=== PATIENT | male | born 1990 | race African-American/Black ===

== ENCOUNTER 2017-04-10 02:31 | Emergency (ER) | payer OTHER ==
[~2017-04-10] VITALS: Ht 172.7 cm; Wt 88.8 kg
[2017-04-10 02:31] VITALS: TEMP 36.7; Ht 172.7 cm; Wt 88.8 kg
[2017-04-10] MEDS ORDERED: HALOPERIDOL LACTATE 5 MG/ML 1 ML VIAL ONE (02:35)
[2017-04-10] MEDS ORDERED: LORAZEPAM 2 MG/ML 1 ML VIAL ONE (02:35)
--- NOTE | 2017-04-10 02:43 | EMERGENCY ROOM VISIT NOTE ---
History Report prepared by Soy: Marina Fiore Under the Supervision of: Dr. Gibson Martinez M.D. First contact with patient: 02:34 Chief Complaint: ALCOHOL OVERDOSE Stated Complaint: ALCOHOL OVERDOSE History of Present Illness The patient is a 27 year old male who presents to the Emergency Room with complaints of alcoholic intoxication. Per EMS, the patient passed out in the bathroom of [employer] and was found a half hour later. EMS note he started to become combative en route. Patient denies drug use but admits heavy ETOH use as it is his birthday. Denies pain nor injuries. Limited HPI secondary to alcohol intoxication. Source of History: EMS History Limited By: intoxication Review of Systems Limited ROS secondary to alcohol intoxication. Past Medical & Surgical Unable to obtain medical history sheet secondary to alcohol intoxication. Family History Unable to obtain medical history sheet secondary to alcohol intoxication. Social History Marital Status: single Current/Historical Medications Unable to Obtain Active Prescriptions or Reported Meds Physical Exam Vital Signs Date Time Temp Pulse Resp B/P (MAP) Pulse Ox O2 Delivery O2 Flow Rate FiO2 04/10/17 11:28 73 18 157/103 98 04/10/17 10:00 71 18 157/100 98 Room Air 04/10/17 08:00 68 18 134/73 95 Room Air 04/10/17 06:31 134/76 04/10/17 06:21 69 15 95 04/10/17 06:16 69 15 95 04/10/17 06:11 70 04/10/17 06:02 142/58 04/10/17 05:46 70 14 95 04/10/17 05:41 71 14 95 04/10/17 05:31 132/67 04/10/17 05:11 81 15 95 04/10/17 05:01 123/56 04/10/17 04:41 80 94 04/10/17 04:36 83 18 94 04/10/17 04:31 118/62 04/10/17 04:06 81 14 94 04/10/17 04:01 102/55 04/10/17 03:36 82 16 93 04/10/17 03:31 80 15 108/49 93 04/10/17 03:01 82 15 130/76 94 04/10/17 02:43 91 04/10/17 02:41 138/80 04/10/17 02:40 Room Air 04/10/17 02:31 36.7 94 19 138/80 98 Room Air Physical Exam GENERAL: Patient is heavily intoxicated. Smells of alcohol. Well appearing and in no acute distress. HEAD: No evidence of Trauma. AT/NC EYES: Injected conjunctiva. Normal EOM. Pupils equal/reactive. ENT: Mucous membranes moist, no nasal congestion, . NECK: No step-offs, no adenopathy, no meningismus, trachea is midline. LUNGS: No dyspnea. Clear to auscultation and equal bilaterally. No wheeze, no rhonchi. HEART: Tachycardic, regular rhythm. No murmurs, rubs, gallops appreciated. ABDOMEN: Soft, nontender, bowel sounds positive, no masses appreciated, no peritonitis. BACK: No midline tenderness, no CVA tenderness EXTREMITIES: Normal motion all extremities, no cyanosis, no edema. NEUROLOGIC: Intoxicated. Combative, swinging at nurses. Alert, oriented. No acute motor or sensory deficits, no focal weakness, cranial nerves grossly intact. SKIN: No rash, no jaundice, no diaphoresis. Medical Decision & Procedures Laboratory Results 04/10/17 02:43 Test 04/10/17 02:43 Anion Gap 9.0 mmol/L (3-11) Est Creatinine Clear Calc Drug Dose 100.1 ml/min Estimated GFR () 95.5 Estimated GFR (Non- 82.4 BUN/Creatinine Ratio 12.0 (10-20) Calcium Level 8.2 mg/dl (8.5-10.1) Ethyl Alcohol mg/dL 311.0 mg/dl (0-3) Laboratory results as reviewed by me. Medications Administered Medications (Trade) Dose Ordered Sig/Todd Route Start Time Stop Time Status Last Admin Dose Admin Lorazepam (Ativan Inj) 2 mg STK-MED ONCE .ROUTE 04/10/17 02:35 04/10/17 02:36 DC 04/10/17 02:46 2 MG Haloperidol Lactate (Haldol Inj) 10 mg STK-MED ONCE .ROUTE 04/10/17 02:35 04/10/17 02:36 DC 04/10/17 02:46 10 MG ED Course 0233: The patient was evaluated in room B9. A complete history and physical exam was performed. 0235: Ordered Haloperidol Lactate 10 mg .ROUTE, Lorazepam 2mg .ROUTE. 0257: The patient is more cooperative. He is still heavily intoxicated. His friends are at bedside who note that he was drinking heavily for his 27th birthday. 0345: I spoke with the patient's friends. They will check on the patient in the morning. Medical Decision Differential: Alcohol Intoxication, Drug Intoxication, Electrolyte Abnormality, Trauma, Intracranial Event, Toxicological, Excited Delirium, Serotonin Syndrome , amongst other pathologies entertained. Medication Reconciliation: I attest that I have personally reviewed the patient 's current medication list. Blood pressure screening: Patient was found to have normal blood pressure on screening and does not require follow-up. 27 yr old intoxicated male brought in by EMS after locking self in bathroom [place] while heavily intoxicated. Patient with no evidence nor history for trauma though on arrival is combative. I was unable to verbally deescalate nor re-direct the patient. The patient's combative behavior was risking a catastrophe. To protect the staff and the patient from harm it was necessary to chemically and physically restrain the patient. Throughout night protecting airway and breathing comfortably. EtOH positive. Discussed with friends at beside who went home to let patient sleep here. Monitored closely over next few hours with stable vitals. Impression Primary Impression: Alcohol abuse Additional Impressions: Alcohol intoxication Combative behavior Critical Care I have personally spent greater than 35 minutes of critical care time in the direct management of this patient. This was a life/limb threatening event. This includes time spent evaluating patient, direct bedside care, chart review, placing orders, interpretation of diagnostic studies, discussion with consultants, patient, and family members, as well as other required patient management activities. This 35 minutes is in excess of all separately billable procedures. Scribe Attestation The scribe's documentation has been prepared under my direction and personally reviewed by me in its entirety. I confirm that the note above accurately reflects all work, treatment, procedures, and medical decision making performed by me. Departure Information Dispostion Home / Self-Care Prescriptions Unable to Obtain Active Prescriptions or Reported Meds Referrals No Doctor, Assigned (PCP) Patient Instructions Alcohol Intoxication - [facility], [facility] Additional Instructions You were severely combative with staff and had to be physically and chemically restrained to protect you and the staff of the Emergency Department. The medications given to you can sometimes cause side effects of muscle stiffness and twitching the next day. If you have concerns please return to Emergency Department for further evaluation. Problem Qualifiers Additional Impressions: Alcohol intoxication Complication of substance-induced condition: with delirium Qualified Codes: F10.921 - Alcohol use, unspecified with intoxication delirium
[2017-04-10 03:09] LABS: CALCIUM 8.2 mg/dl (8.5-10.1); CREATININE 1.2 mg/dl (0.60-1.40); POTASSIUM 3.8 mmol/L (3.5-5.1)
[2017-04-10 11:28] VITALS: BP 157/103; PULSE 73; O2SAT 98
== END 2017-04-10 11:28 | disposition home or self-care (01) ==
LOC: EDBD 02:31 → C.EDB 02:32
DX: F10.921 Alcohol use, unspecified with intoxication delirium (principal); Y90.8 Blood alcohol level of 240 mg/100 ml or more; R45.6 Violent behavior